=== PATIENT | male | born 1990 | race African-American/Black ===

== ENCOUNTER 2017-07-20 12:17 | Emergency (ER) | payer OTHER ==
[2017-07-20 14:34] LABS: BASO % 0.2 % (0.0-1.0); EOS % 0.1 % (0.0-3.0); HEMATOCRIT 41.6 % (42.0-52.0); HEMOGLOBIN 14.2 g/dl (14.0-18.0); IMMATURE GRANULOCYTE % 0.3 % (0-0); LYMPH % 16.8 % (24.0-44.0); MEAN CORPUSCULAR HEMOGLOBIN 31.6 pg (27.0-33.0); MEAN CORPUSCULAR HGB CONC 34.1 g/dl (32.0-36.5); MEAN CORPUSCULAR VOLUME 92.7 fl (80.0-96.0); MONO # 0.7 10^3/uL (0.0-0.8); NEUTROPHILS # 9.1 10^3/uL (1.8-7.7); NEUTROPHILS % 76.6 % (36.0-66.0); PLATELET COUNT, AUTOMATED 336 10^3/uL (150-450); RED BLOOD COUNT 4.49 10^6/uL (4.30-6.10); RED CELL DISTRIBUTION WIDTH 11.8 % (11.5-14.5); WHITE BLOOD COUNT 11.8 10^3/uL (4.0-10.0)
[2017-07-20 14:51] LABS: ALBUMIN 4.4 GM/DL (3.2-5.2); ALBUMIN/GLOBULIN RATIO 1.22 (1.00-1.93); ALKALINE PHOSPHATASE 59 U/L (45-117); ALT/SGPT 22 U/L (12-78); ANION GAP 4 MEQ/L (8-16); AST/SGOT 20 U/L (7-37); BILIRUBIN,DIRECT 0.1 MG/DL (0.0-0.2); BILIRUBIN,TOTAL 0.4 MG/DL (0.2-1.0); BLOOD UREA NITROGEN 13 MG/DL (7-18); CALCIUM LEVEL 9.4 MG/DL (8.5-10.1); CARBON DIOXIDE LEVEL 30 MEQ/L (21-32); CHLORIDE LEVEL 105 MEQ/L (98-107); CREATININE FOR GFR 0.96 MG/DL (0.70-1.30); GLOMERULAR FILTRATION RATE > 60.0 (>60); GLUCOSE, FASTING 91 MG/DL (70-100); POTASSIUM SERUM 4.3 MEQ/L (3.5-5.1); SODIUM LEVEL 139 MEQ/L (136-145)
[2017-07-20] MEDS: ADACEL/BOOSTRIX VACCINE (DIPHTH/PERTUSS/ACELL/TETANUS)0.5ML SYR (90715) IM (15:51)
[2017-07-20] MEDS: TETRACAINE 0.5% OPHTH SOLN 4ML OS (16:45)
[2017-07-20] MEDS: FLUORESCEIN OPHTH 1 MG STRIP OS (16:45)
[2017-07-20] MEDS: ERYTHROMYCIN OPHTH OINT OS (18:30)
== END 2017-07-20 19:49 | disposition home or self-care (01) ==
LOC: M ED 12:17
DX: S05.02XA Injury of conjunctiva and corneal abrasion without foreign body, left eye, initial encounter (principal); S00.12XA Contusion of left eyelid and periocular area, initial encounter; V43.52XA Car driver injured in collision with other type car in traffic accident, initial encounter; Y92.410 Unspecified street and highway as the place of occurrence of the external cause; Y93.9 Activity, unspecified
CPT/HCPCS: 90715

== ENCOUNTER → 2017-12-24 | Outpatient (REF) | payer OTHER ==
[2017-12-24 14:26] LABS: SEMEN APPEARANCE OPAQUE (OPAQUE); SEMEN VISCOSITY LIQUID (LIQUID); SEMEN VOLUME 2.9 ml (4.0-5.0); WBC CONCENTRATION <=1 M/ml (<=1 M/ml)
[2017-12-24 14:28] LABS: % NORMAL FORMS 6 % (>=4); IMMOTILITY 51 %; NON PROGRESSIVE MOTILITY (c) 20 %; PROGRESSIVE MOTILITY (a) 29 % (>=32); SPERM# 92.7 M/Ejac (>=39); TOTAL MOTILITY 49 % (>=40); TOTAL PROGRESSIVE SPERM 27.1 M/Ejac.
== END ==
LOC: M LAB REF 14:03
DX: N46.9 Male infertility, unspecified (principal)

== ENCOUNTER 2020-02-24 15:22 | Emergency (ER) | payer OTHER ==
[~2020-02-24] VITALS: Ht 167.6 cm; Wt 83.2 kg
[~2020-02-24 15:22] MED LIST: CYCL-707 PO; Diclofenac; ERYTOIN8 OS; OXYC1TAB23 PO
[2020-02-24 15:30] VITALS: BP 132/83
[2020-02-24] MEDS ORDERED: VALI5TAB PO (15:41)
[2020-02-24] MEDS ORDERED: BACL10TA2 PO (15:41)
[2020-02-24] MEDS ORDERED: diazePAM 10MG/2ML SYRINGE (J3360 PER 5MG) IM ONE (15:45)
[2020-02-24] MEDS ORDERED: KETOROLAC 60MG 2ML VIAL IM ONE (15:45)
== END 2020-02-24 16:38 | disposition home or self-care (01) ==
LOC: M ED 15:22
DX: M62.830 Muscle spasm of back (principal); M54.9 Dorsalgia, unspecified; G89.29 Other chronic pain; Z79.899 Other long term (current) drug therapy
CPT/HCPCS: 96372; 99284; J1885; J3360

== ENCOUNTER 2020-02-27 16:54 | Emergency (ER) | payer OTHER ==
[~2020-02-27] VITALS: Ht 167.6 cm; Wt 83.2 kg
[~2020-02-27 16:54] MED LIST changes: +BACL10TA2 PO; +VALI5TAB PO
[2020-02-27] MEDS ORDERED: LIDO1ADH20 TP (17:09)
[2020-02-27] MEDS ORDERED: diazePAM 10MG/2ML SYRINGE (J3360 PER 5MG) IV ONE (17:30)
[2020-02-27] MEDS ORDERED: KETOROLAC 30 MG/ML 1ML VIAL IV ONE (17:30)
[2020-02-27 18:28] LABS: BASO % 0.3 % (0.0-1.0); EOS % 0.3 % (0.0-3.0); LYMPH # 2.9 10^3/uL (1.5-5.0); LYMPH % 32.7 % (24.0-44.0); MEAN CORPUSCULAR HEMOGLOBIN 32.1 pg (27.0-33.0); MEAN CORPUSCULAR HGB CONC 34.1 g/dl (32.0-36.5); MEAN CORPUSCULAR VOLUME 94.2 fl (80.0-96.0); MONO # 0.7 10^3/uL (0.0-0.8); MONO % 7.5 % (0.0-5.0); NEUTROPHILS # 5.2 10^3/uL (1.5-8.5); NEUTROPHILS % 59.1 % (36.0-66.0); PLATELET COUNT, AUTOMATED 346 10^3/uL (150-450); RED BLOOD COUNT 4.67 10^6/uL (4.30-6.10); WHITE BLOOD COUNT 8.8 10^3/uL (4.0-10.0)
[2020-02-27 19:53] LABS: APPEARANCE, URINE CLEAR (CLEAR); BACTERIA, URINE AUTO NEGATIVE (NEGATIVE); BILIRUBIN, URINE AUTO NEGATIVE (NEGATIVE); BLOOD, URINE BLOOD NEGATIVE (NEGATIVE); CALCIUM OXALATE CRYSTALS SMALL; COLOR, URINE YELLOW (YELLOW); GLUCOSE, URINE (UA) AUTO NEGATIVE (NEGATIVE); KETONE, URINE AUTO NEGATIVE (NEGATIVE); LEUKOCYTE ESTERASE, URINE AUTO NEGATIVE (NEGATIVE); MUCUS, URINE SMALL (NEGATIVE); NITRITE, URINE AUTO NEGATIVE (NEGATIVE); PROTEIN, URINE AUTO NEGATIVE (NEGATIVE); RBC, URINE AUTO 1 /HPF (0-3); SQUAMOUS EPITHELIAL CELL UR AU 0 /HPF (0-6); WBC, URINE AUTO 0 /HPF (0-3)
[2020-02-27 20:30] VITALS: BP 124/74
--- NOTE | 2020-02-27 20:36 | REPVR ---
PROCEDURE INFORMATION: Exam: MR Thoracic Spine Without Contrast Exam date and time: 02/27/2020 7:53 PM Age: 29 years old Clinical indication: Pain in thoracic spine; Without myelpathy or radiculopathy; Additional info: Erectile dysfunction, incontinence, severe muscle spasms, BP TECHNIQUE: Imaging protocol: Multiplanar magnetic resonance images of the thoracic spine without intravenous contrast. COMPARISON: No relevant prior studies available. FINDINGS: Patient motion. Vertebral body height and AP alignment is preserved. No evidence of discitis/osteomyelitis. No abnormal cord signal or cord expansion. No epidural fluid collection. Central canal is widely patent throughout. IMPRESSION: 1. Patient motion without definite acute abnormality. 2. Central canal is widely patent throughout. Electronically signed by: Nadeem Shell On 02/27/2020 20:36:25 PM
--- NOTE | 2020-02-27 20:38 | REPVR ---
PROCEDURE INFORMATION: Exam: MR Lumbar Spine Without Contrast. Exam date and time: 02/27/2020 8:05 PM Age: 29 years old Clinical indication: Low back pain; Additional info: Erectile dysfunction, incontinence, severe muscle spasms, BP TECHNIQUE: Imaging protocol: Multiplanar magnetic resonance images of the lumbar spine without intravenous contrast. COMPARISON: No relevant prior studies available. FINDINGS: Vertebral body height and AP alignment is preserved. Negative for discitis/osteomyelitis. Conus medullaris terminates at L1. No epidural fluid collection. L1-L2: No central or foraminal stenosis. L2-L3: No central or foraminal stenosis. L3-L4: No central or foraminal stenosis. L4-L5: No central or foraminal stenosis. L5-S1: No central or foraminal stenosis. IMPRESSION: 1. No acute abnormality. 2. Central canal is widely patent throughout. Electronically signed by: Nadeem Shell On 02/27/2020 20:38:30 PM
[2020-02-27 21:10] LABS: FREE THYROXINE INDEX 2.8 % (1.4-3.8); THYROID STIMULATING HORMONE 1.63 uIU/ML (0.358-3.740)
== END 2020-02-27 21:09 | disposition home or self-care (01) ==
LOC: EDBD 16:54 → M ED 16:54 → EDUNIT# 16:54 → M ED 21:09
DX: M62.830 Muscle spasm of back (principal); Z79.899 Other long term (current) drug therapy
CPT/HCPCS: 72146; 72148; 80047; 81001; 82550; 84436; 84443; 84479; 85025; 96374; 96375; 99284; J1885; J3360

== ENCOUNTER 2020-06-18 11:44 | Emergency (ER) | payer OTHER ==
[~2020-06-18] VITALS: Ht 167.6 cm; Wt 81.8 kg
[~2020-06-18 11:44] MED LIST changes: +LIDO1ADH20 TP
[2020-06-18 11:45] VITALS: BP 118/63
[2020-06-18] MEDS ORDERED: diazePAM 10 MG TAB PO ONE (12:45)
[2020-06-18] MEDS ORDERED: VALI5TAB PO (13:22)
== END 2020-06-18 14:08 | disposition home or self-care (01) ==
LOC: M ED 11:44
DX: G89.29 Other chronic pain (principal); M54.5 Low back pain; M62.830 Muscle spasm of back; Z79.899 Other long term (current) drug therapy

== ENCOUNTER 2020-07-25 14:04 | Emergency (ER) | payer OTHER ==
[~2020-07-25] VITALS: Ht 167.6 cm; Wt 81.8 kg
[2020-07-25] MEDS ORDERED: KETOROLAC 30 MG/ML 1ML VIAL IM ONE (14:30)
[2020-07-25] MEDS ORDERED: KETO10TAB PO (15:17)
[2020-07-25 15:29] VITALS: BP 130/71
== END 2020-07-25 15:38 | disposition home or self-care (01) ==
LOC: EDBD 14:04 → M ED 14:04
DX: S39.012A Strain of muscle, fascia and tendon of lower back, initial encounter (principal); X58.XXXA Exposure to other specified factors, initial encounter; Y92.89 Other specified places as the place of occurrence of the external cause
CPT/HCPCS: 96372; 99284; J1885

== ENCOUNTER 2020-11-18 12:09 | Emergency (ER) | payer OTHER ==
[~2020-11-18] VITALS: Ht 167.6 cm; Wt 81.8 kg
[~2020-11-18 12:09] MED LIST changes: +KETO10TAB PO
[2020-11-18] MEDS ORDERED: LEXA5TAB13 PO (12:38)
[2020-11-18] MEDS ORDERED: diazePAM 5MG TABLET PO ONE (14:50)
[2020-11-18] MEDS ORDERED: KETOROLAC 60MG 2ML VIAL IM ONE (14:50)
[2020-11-18 15:21] VITALS: BP 132/81
== END 2020-11-18 15:23 | disposition home or self-care (01) ==
LOC: M ED 12:09
DX: M62.830 Muscle spasm of back (principal)
CPT/HCPCS: 96372; 99283; J1885

== ENCOUNTER 2020-11-22 11:20 | Emergency (ER) | payer OTHER ==
[~2020-11-22] VITALS: Ht 167.6 cm; Wt 81.8 kg
[~2020-11-22 11:20] MED LIST changes: +LEXA5TAB13 PO
[2020-11-22 11:45] VITALS: BP 120/72
[2020-11-22] MEDS ORDERED: LIDO1ADH20 TP (11:52)
[2020-11-22] MEDS ORDERED: DICL1GEL3 TOP (11:52)
[2020-11-22] MEDS ORDERED: KETO10TAB PO (12:19)
== END 2020-11-22 13:12 | disposition home or self-care (01) ==
LOC: M ED 11:20 → EDUNIT# 11:20 → EDBD 11:20 → M ED 13:12
DX: M62.830 Muscle spasm of back (principal); M54.5 Low back pain

== ENCOUNTER → 2021-10-17 | Outpatient (CLI) | payer OTHER ==
[~2021-10-17] MED LIST changes: +DICL1GEL3 TOP
[2021-10-17 18:14] LABS: SEMEN APPEARANCE OPAQUE (OPAQUE); SEMEN VISCOSITY LIQUID (LIQUID); SEMEN WBC <=1 M/ml (<=1 M/ml)
== END ==
LOC: M LAB 16:24
PROVIDERS: ATTEND Obstetrics & Gynecology
DX: N46.9 Male infertility, unspecified (principal)

== ENCOUNTER 2022-04-24 16:14 | Emergency (ER) | payer SELFPAY ==
[~2022-04-24] VITALS: Ht 167.6 cm; Wt 86.4 kg
[2022-04-24 16:24] VITALS: BP 126/58
[2022-04-24] MEDS ORDERED: ARIP1TAB4 PO (16:33)
== END 2022-04-24 17:17 | disposition left against medical advice (07) ==
LOC: M ED 16:14
DX: Z53.21 Procedure and treatment not carried out due to patient leaving prior to being seen by health care provider (principal)

== ENCOUNTER → 2022-12-17 | Outpatient (REF) | payer OTHER ==
[~2022-12-17] MED LIST changes: +ARIP1TAB4 PO
[2022-12-17 10:49] LABS: SEMEN APPEARANCE OPAQUE (OPAQUE); SEMEN VISCOSITY LIQUID (LIQUID); SEMEN VOLUME 1.3 ML (2.0-5.0); SEMEN WBC <=1 M/ml (<=1 M/ml); SEMEN pH 8.5 (7.0-8.0)
== END ==
LOC: M LAB REF 08:56
PROVIDERS: ATTEND Obstetrics & Gynecology
DX: N46.9 Male infertility, unspecified (principal)

== ENCOUNTER 2023-11-24 10:20 | Emergency (ER) | payer OTHER ==
[~2023-11-24] VITALS: Ht 167.6 cm; Wt 81.4 kg
[~2023-11-24 10:20] MED LIST changes: +DICL100G10 TOP; -DICL1GEL3 TOP
[2023-11-24] MEDS ORDERED: CITA20TA6 (10:37)
[2023-11-24] MEDS ORDERED: VITA200032 (10:37)
[2023-11-24] MEDS ORDERED: GABA-282 (10:37)
[2023-11-24] MEDS ORDERED: EZET10TA21 (10:37)
[2023-11-24] MEDS ORDERED: FAMO40TA3 (10:37)
[2023-11-24] MEDS ORDERED: OMEP40CA5 (10:37)
[2023-11-24] MEDS ORDERED: BACL1TAB9 (10:37)
[2023-11-24] MEDS ORDERED: DIAZ10TA2 PO (10:37)
[2023-11-24] MEDS ORDERED: MIRT-10 (10:37)
[2023-11-24 11:10] VITALS: BP 98/55; TEMP 98.2; O2SAT 99
== END 2023-11-24 12:09 | disposition home or self-care (01) ==
LOC: M ED 10:20
DX: M54.50 Low back pain, unspecified (principal); M62.830 Muscle spasm of back; K21.9 Gastro-esophageal reflux disease without esophagitis; Z79.1 Long term (current) use of non-steroidal anti-inflammatories (NSAID); Z79.899 Other long term (current) drug therapy

== ENCOUNTER 2023-12-03 15:03 | Inpatient (IN) | payer OTHER ==
[~2023-12-03] VITALS: Ht 167.6 cm; Wt 79.7 kg
[~2023-12-03 15:03] MED LIST changes: +BACL1TAB9 PO; +CITA20TA6 PO; +DIAZ10TA2 PO; +EZET10TA21 PO; +FAMO40TA3 PO; +GABA-282 PO; +MIRT-10 PO; +OMEP40CA5 PO; +VITA200032
[2023-12-03 15:57] LABS: HEMATOCRIT 41.7 % (42.0-52.0); HEMOGLOBIN 14.3 g/dl (13.5-17.5); MEAN CORPUSCULAR HEMOGLOBIN 31.6 pg (27.0-33.0); MEAN CORPUSCULAR HGB CONC 34.3 g/dl (32.0-36.5); MEAN CORPUSCULAR VOLUME 92.1 fl (80.0-96.0); PLATELET COUNT, AUTOMATED 303 10^3/uL (150-450); RED BLOOD COUNT 4.53 10^6/uL (4.30-6.10); WHITE BLOOD COUNT 7.7 10^3/uL (4.0-10.0)
[2023-12-03 16:26] LABS: ETHYL ALCOHOL (ETHANOL) < 0.003 % (0.000-0.010)
[2023-12-03 16:28] LABS: ALBUMIN 4.5 G/DL (3.2-5.2); ALKALINE PHOSPHATASE 59 U/L (46-116); ALT/SGPT 30 U/L (7.0-40); AST/SGOT 17 U/L (<34); BILIRUBIN,DIRECT 0.1 MG/DL (<0.4); BILIRUBIN,TOTAL 0.4 MG/DL (0.3-1.2); BLOOD UREA NITROGEN 11 MG/DL (9-23); CALCIUM LEVEL 10.1 MG/DL (8.5-10.1); CARBON DIOXIDE LEVEL 29 MMOL/L (20-31); CHLORIDE LEVEL 104 MMOL/L (98-107); CREATININE FOR GFR 0.97 MG/DL (0.70-1.30); GLOMERULAR FILTRATION RATE > 60.0 (>60); GLUCOSE, FASTING 88 MG/DL (60-100); POTASSIUM SERUM 4.2 MMOL/L (3.5-5.1); SALICYLATE LEVEL < 3.0 MG/DL (<30); SODIUM LEVEL 138 MMOL/L (136-145); TOTAL PROTEIN 7.2 G/DL (5.7-8.2)
[2023-12-03 16:31] LABS: THYROID STIMULATING HORMONE 1.161 uIU/ML (0.55-4.78)
[2023-12-03 17:05] LABS: AMPHETAMINES LEVEL URINE NEGATIVE (NEGATIVE)
[2023-12-03 17:06] LABS: BARBITURATES URINE NEGATIVE (NEGATIVE); CANNABINOIDS URINE NEGATIVE (NEGATIVE); COCAINE METABOLITE URINE NEGATIVE (NEGATIVE); METHADONE URINE NEGATIVE (NEGATIVE); OPIATES URINE NEGATIVE (NEGATIVE); PHENCYCLIDINE URINE NEGATIVE (NEGATIVE)
[2023-12-03 17:32] LABS: BENZODIAZEPINES URINE POSITIVE (NEGATIVE)
[2023-12-03] MEDS ORDERED: HOME MED LIST COMPLETE! XX SCH (19:35)
[2023-12-04] MEDS: THIAMINE 100 MG TAB PO SCH (09:00)
[2023-12-04] MEDS: NICOTINE 14 MG/24 HR TRANSDERMAL TD SCH (09:00)
[2023-12-04] MEDS: OMEPRAZOLE 20MG CAP PO SCH (09:07)
[2023-12-04] MEDS: EZETIMIBE 10MG TABLET (ZETIA) PO SCH (09:07)
[2023-12-04] MEDS: CitaloPRAM (CeleXA) 10 MG TABLET PO SCH (09:07)
[2023-12-04] MEDS: GABAPENTIN 300 MG CAP PO SCH (09:07)
[2023-12-04] MEDS: BACLOFEN 10 MG TAB PO SCH ×2 (09:07→16:34)
[2023-12-04] MEDS: diazePAM 10 MG TAB PO STA (12:53)
[2023-12-04] MEDS ORDERED: diphenhydrAMINE 25MG CAP PO PRN (12:55)
[2023-12-04] MEDS ORDERED: MOM 30ML SUSPENSION UDC PO PRN (12:55)
[2023-12-04] MEDS ORDERED: traZODone 50 MG TAB PO PRN (12:55)
[2023-12-04] MEDS ORDERED: MAALOX 30 ML SUSP *UDC PO PRN (12:55)
[2023-12-04] MEDS ORDERED: LORazepam 2 MG TAB PO PRN (12:55)
[2023-12-04] MEDS ORDERED: IBUPROFEN 400MG TAB PO PRN (12:55)
[2023-12-04 15:19] VITALS: BP 105/59
[2023-12-04 16:15] VITALS: BP 105/59; TEMP 97.9; O2SAT 97
[2023-12-04] MEDS: FOLIC ACID 1MG TAB PO SCH (16:34)
[2023-12-04] MEDS: MULTIVITAMINS/MINERALS THERAP 1 TAB PO SCH (16:35)
[2023-12-04 17:45] VITALS: BP 140/88; O2SAT 96
[2023-12-04] MEDS: FAMOTIDINE 20 MG TAB PO SCH (17:48)
[2023-12-04] MEDS ORDERED: FAMOTIDINE 20 MG TAB PO SCH (18:00)
[2023-12-04 21:00] VITALS: BP 137/77
[2023-12-04] MEDS ORDERED: MIRTAZAPINE 7.5MG PER 1/2 TABLET PO SCH (21:00)
[2023-12-04] MEDS: MIRTAZAPINE 7.5MG PER 1/2 TABLET PO SCH (21:06)
[2023-12-04] MEDS: diazePAM 5MG TABLET PO PRN (21:06)
[2023-12-04 22:00] VITALS: BP 125/69; TEMP 96.8; O2SAT 97
[2023-12-05 06:10] VITALS: BP 101/58
[2023-12-05 06:17] VITALS: BP 101/58; TEMP 98.1; O2SAT 99
[2023-12-05] MEDS: CitaloPRAM (CeleXA) 10 MG TABLET PO SCH (07:56)
[2023-12-05] MEDS: GABAPENTIN 300 MG CAP PO SCH (07:56)
[2023-12-05] MEDS: OMEPRAZOLE 20MG CAP PO SCH (07:56)
[2023-12-05] MEDS: EZETIMIBE 10MG TABLET (ZETIA) PO SCH (07:57)
[2023-12-05] MEDS: LIDOCAINE 5% (LIDODERM) PATCH TD SCH (09:00)
[2023-12-05 14:00] VITALS: BP 121/64
[2023-12-05 16:10] VITALS: BP 121/64; TEMP 98.6; O2SAT 100
[2023-12-05 17:59] VITALS: BP 134/73; TEMP 97.9; O2SAT 98
[2023-12-06 06:19] VITALS: BP 112/52; TEMP 97.8; O2SAT 100
[2023-12-06 08:10] VITALS: BP 118/70; TEMP 97.8; O2SAT 97
[2023-12-06 15:13] VITALS: BP 114/63; TEMP 98.2; O2SAT 96
[2023-12-06] MEDS: ACETAMINOPHEN TAB 650MG DOSE (2X325MG) PO PRN (20:00)
[2023-12-07 06:15] VITALS: BP 97/53; TEMP 98.6; O2SAT 99
[2023-12-07] MEDS ORDERED: Multivitamins PO (10:13)
[2023-12-07] MEDS ORDERED: LIDO5TD TD (10:13)
== END 2023-12-07 12:01 | disposition home or self-care (01) | DRG 880 ==
LOC: M ED 15:03 → M ED INP 12-04 12:54 → M PSY 12-04 16:02
PROVIDERS: ADMIT Student in an Organized Health Care Education/Training Program; ATTEND Student in an Organized Health Care Education/Training Program
DX: F41.1 Generalized anxiety disorder (principal); R45.851 Suicidal ideations; F12.90 Cannabis use, unspecified, uncomplicated; F17.200 Nicotine dependence, unspecified, uncomplicated; F43.21 Adjustment disorder with depressed mood; Z79.899 Other long term (current) drug therapy; R29.6 Repeated falls; M62.830 Muscle spasm of back; K21.9 Gastro-esophageal reflux disease without esophagitis; E78.5 Hyperlipidemia, unspecified